=== PATIENT | male | born 1960 | race Caucasian/White ===

== ENCOUNTER 2020-02-13 07:26 | Day surgery (SDC) | payer OTHER ==
[~2020-02-13] VITALS: Ht 180.3 cm; Wt 86.2 kg
[~2020-02-13 07:26] MED LIST: BETAMETHASONE0.051 EX; FINASTERIDE5 MG PO; LOTRISONE CREAM15 G1 EX; MILK THISTLE1000 MG PO; MULTI VIT PO; SYMBICORT 80-4.5MCG IN; TRUVADA1 TA1 PO; VENTOLIN HFA IN; VIAGRA100 MG PO; VITAMIN B-1100 M1 PO; VITAMIN C1000 MG PO; [UNRECOGNIZED DRUG - OTHER] SC
[2020-02-13 13:34] VITALS: BP 133/84
== END 2020-02-13 11:00 | disposition home or self-care (01) | DRG 349 ==
LOC: ORM 07:26
PROVIDERS: ATTEND Surgery
PROC: 06BY3ZC Excision of Hemorrhoidal Plexus, Percutaneous Approach (ICD-10-PCS; principal; 2020-02-13)
DX: K64.4 Residual hemorrhoidal skin tags (principal); J45.20 Mild intermittent asthma, uncomplicated; J44.9 Chronic obstructive pulmonary disease, unspecified; Z90.49 Acquired absence of other specified parts of digestive tract; Z20.828 Contact with and (suspected) exposure to other viral communicable diseases
CPT/HCPCS: C9290; J0131; J1100